=== PATIENT | male | born 1945 | race African-American/Black ===

== ENCOUNTER 2019-01-08 12:45 | Emergency (ER) | payer MEDICARE, MEDICAID ==
[~2019-01-08] VITALS: Ht 170.2 cm; Wt 117.9 kg
[2019-01-08 12:49] VITALS: BP 173/105
[2019-01-08] MEDS ORDERED: MULTIVITAMINS1 EAC8 ORAL (12:56)
[2019-01-08] MEDS ORDERED: ASPIR 8181 MG ORAL (12:56)
[2019-01-08] MEDS ORDERED: MAGNESIUM OXID400 M2 PO (12:56)
[2019-01-08] MEDS ORDERED: BACLOFEN10 MG ORAL (12:56)
[2019-01-08] MEDS ORDERED: ZANTAC150 MG ORAL (12:56)
[2019-01-08] MEDS ORDERED: ATORVASTATIN CA20 MG ORAL (12:56)
--- NOTE | 2019-01-08 12:56 | NUR ---
ED Nurse Note: Provided mask.
[2019-01-08 13:20] VITALS: BP 159/96
[2019-01-08] MEDS ORDERED: LEVAQUIN750 MG ORAL (13:20)
[2019-01-08] MEDS ORDERED: PROMETHAZINE-C118 M1 ORAL (13:20)
--- NOTE | 2019-01-08 13:23 | NUR ---
ED Nurse Note:pt. came with c/o cough and chest congestion with pain for 3 weeks, no fever, VSS, placed on site monitor, pt. was seen by ER
--- NOTE | 2019-01-08 13:25 | NUR ---
ER DISCHARGE NOTE: Patient is cleared to be discharged per ERMD, pt is aox4, on room air, with stable vital signs. pt was given dc and prescription instructions, pt was able to verbalize understanding, pt is able to ambulate with steady gait. pt took all belongings.
--- NOTE | 2019-01-08 14:22 | Emergency Room Report ---
History of Present Illness General Chief Complaint: Upper Respiratory Illness Source: Patient Present Illness HPI 73-year-old male presents ED for evaluation. Complaining of cough and congestion for the last 3 weeks. Cough is productive with yellowish phlegm. Notes chills. Afebrile in triage. Denies chest pain or shortness of breath. Admits to smoking. Denies recent travel. No other aggravating relieving factors. Denies any other associated symptoms Allergies: Coded Allergies: No Known Allergies (Unverified , 01/08/19) Patient History Past Medical History: HTN, GERD Past Surgical History: none Pertinent Family History: none Social History: Reports: smoking; Denies: alcohol use, drug use Reviewed Nursing Documentation: PMH: Agreed; PSxH: Agreed Nursing Documentation-PMH Past Medical History: No History, Except For Hx Cardiac Problems: No Hx Hypertension: Yes Hx Pacemaker: No Hx Asthma: No Hx COPD: No Hx Diabetes: No Hx Cancer: No Hx Gastrointestinal Problems: Yes - gastritis Hx Dialysis: No History Of Psychiatric Problem: No Hx Neurological Problems: No Hx Cerebrovascular Accident: No Hx Seizures: No Review of Systems All Other Systems: negative except mentioned in HPI Physical Exam Vital Signs Date Time Temp Pulse Resp B/P (MAP) Pulse Ox O2 Delivery O2 Flow Rate FiO2 01/08/19 12:49 98.1 76 18 173/105 (127) 96 Room Air Sp02 EP Interpretation: reviewed, normal General Appearance: no apparent distress, alert, GCS 15, non-toxic Head: normocephalic, atraumatic Eyes: bilateral eye normal inspection, bilateral eye PERRL ENT: hearing grossly normal, normal pharynx, no angioedema, normal voice Neck: full range of motion, supple/symm/no masses Respiratory: chest non-tender, lungs clear, normal breath sounds, speaking full sentences Cardiovascular #1: regular rate, rhythm, no edema Cardiovascular #2: 2+ carotid (R), 2+ carotid (L), 2+ radial (R), 2+ radial (L) , 2+ dorsalis pedis (R), 2+ dorsalis pedis (L) Gastrointestinal: normal bowel sounds, non tender, soft, non-distended, no guarding, no rebound Rectal: deferred Genitourinary: normal inspection, no CVA tenderness Musculoskeletal: back normal, gait/station normal, normal range of motion, non- tender Neurologic: alert, oriented x3, responsive, motor strength/tone normal, sensory intact, speech normal Psychiatric: judgement/insight normal, memory normal, mood/affect normal, no suicidal/homicidal ideation Reflexes: 3+ bicep (R), 3+ bicep (L), 3+ tricep (R), 3+ tricep (L), 3+ knee (R) , 3+ knee (L) Lymphatic: no adenopathy Medical Decision Making Diagnostic Impression: Primary Impression: Atypical pneumonia ER Course Hospital Course 73-year-old male presents ED complaining of congestion and cough x3 weeks Differential diagnoses include: URI, pharyngitis, otitis media, asthma Clinical course Patient placed on stretcher. After initial history, physical exam reveals an elderly male in no acute distress. Bilateral TM unremarkable. No pharyngeal erythema. No tonsillar exudates. No lymphadenopathy. lungs clear. abdomen soft. discussed findings with patient. Given prolonged course of symptoms along with age and smoking history we will treat as atypical pneumonia. Will prescribe antibiotics and cough medication. Safe for discharge for close outpatient follow-up. States he has a PMD Diagnosis - atypical pneumonia Stable and discharged home with Rx Levaquin, promethazine/codeine. Instructed to followup with PMD. Return to ED if symptoms recur or worsen Last Vital Signs Date Time Temp Pulse Resp B/P (MAP) Pulse Ox O2 Delivery O2 Flow Rate FiO2 01/08/19 13:28 98.1 85 18 159/96 100 Room Air Status: improved Disposition: HOME, SELF-CARE Condition: Stable Scripts Codeine/Promethazine Hcl* (PROMETHAZINE-CODEINE SYRUP*) 118 Ml Syrup 5 ML ORAL Q6H PRN for For Cough, #118 ML 0 Refills Prov: Minh Chin MD 01/08/19 Levofloxacin* (LEVAQUIN*) 750 Mg Tablet 750 MG ORAL DAILY for 7 Days, TAB Prov: Minh Chin MD 01/08/19 Referrals: NON PHYSICIAN (PCP) Patient Instructions: Community-Acquired Pneumonia, Adult, [id number] Minh Chin MD Jan 08, 2019 14:22
== END 2019-01-08 13:30 | disposition home or self-care (01) ==
LOC: EMR 13:20
DX: J18.9 Pneumonia, unspecified organism (principal); I10 Essential (primary) hypertension; K21.9 Gastro-esophageal reflux disease without esophagitis
CPT/HCPCS: 99282